=== PATIENT | male | born 1940 | race Caucasian/White ===

== ENCOUNTER 2016-12-14 04:06 | Inpatient (IN) | payer MEDICARE, BC ==
[~2016-12-14] VITALS: Ht 180.3 cm; Wt 108.0 kg
[~2016-12-14 04:06] MED LIST: BACTRIM DS1 TAB PO; JALYN PO; LOPRESSOR50 M1 PO; NITROSTAT0.3 MG PO; NITROSTAT0.4 MG; NORVASC10 M1 PO; TEKTURNA300 MG PO; ZOLOFT50 MG PO
--- NOTE | 2016-12-14 04:06 | NUR ---
PT. IMMEDIATELY TO TREATMENT ROOM VIA DCEMS ON ARRIVAL TO ED.
[2016-12-14] MEDS ORDERED: DIOVAN320 MG PO (04:30)
[2016-12-14] MEDS ORDERED: COREG6.25 MG PO (04:31)
[2016-12-14 04:32] LABS: HEMATOCRIT 42.5 % (39.0-50.0); HEMOGLOBIN 14.5 g/dl (14.0-18.0); IMMATURE GRANULOCYTES 0.2 % (0.0-1.0); MEAN CELL VOLUME 91.8 fL CALC (80.0-100.0); MEAN CORPUSCULAR HGB 31.3 pG CALC (26.0-32.0); MEAN CORPUSCULAR HGB CONC 34.1 g/L CALC (32.0-36.0); NEUT# 3.05 thou/uL (1.82-7.42); RED BLOOD COUNT 4.63 mill/uL (4.70-6.10); RED CELL DISTRI WIDTH 14.3 % (11.5-15.5)
[2016-12-14] MEDS ORDERED: SERTRALINE50 MG PO (04:32)
[2016-12-14 04:38] LABS: ALKALINE PHOSPHATASE 72 u/l (38-126); AMYLASE 73 u/l (30-110); ANION GAP 14 (6-22 (CALC)); BILIRUBIN, TOTAL 0.8 mg/dL (0.0-1.4); BUN 16 mg/dL (8-23); BUN/CREATININE RATIO 23 (12-20 (CALC)); CALCIUM 9.1 mg/dL (8.4-10.2); CARBON DIOXIDE 29 mmol/l (22-30); CHLORIDE 103 mmol/l (95-108); CREATININE 0.7 mg/dL (0.7-1.3); GFR > 60 ML/MIN (>=60 (CALC)); GFR FOR AFR.AMER. > 60 ML/MIN (>=60 (CALC)); GLUCOSE 107 mg/dL (82-115); LIPASE 53 u/l (23-300); SGOT/AST 27 u/l (19-48); SGPT/ALT 29 u/l (11-66); SODIUM 142 mmol/l (137-146); TOTAL PROTEIN 6.9 g/dL (6.3-8.2)
[2016-12-14 04:49] LABS: ACT PARTIAL THROMBO TIME 27.1 SECONDS (20.0-32.5); PROTHROMBIN TIME 10.7 SECONDS (9.0-12.5)
[2016-12-14 04:50] LABS: MYOGLOBIN 68 ng/mL (0 - 121)
--- NOTE | 2016-12-14 04:51 | NUR ---
NITROGLUYCERIN 1 INCH WAS DOCUMENTED UNDER THE TREATMENT SECTION THE COW FAILED COMPLETELY.
--- NOTE | 2016-12-14 05:28 | NUR ---
PATIENT DENIES ANY CP AT THIS TIME.
[2016-12-14 05:34] LABS: URINE BILIRUBIN - DIPSTICK NEGATIVE (NEGATIVE); URINE BLOOD DIPSTICK TRACE-INTACT (NEGATIVE); URINE CLARITY SLIGHT CLOUDY; URINE COLOR YELLOW; URINE GLUCOSE - DIPSTICK NEGATIVE (NEGATIVE); URINE KETONE NEGATIVE (NEGATIVE); URINE NITRITE - DIPSTICK NEGATIVE (Negative); URINE PROTEIN - DIPSTICK NEGATIVE (NEG-TRACE); URINE SPECIFIC GRAVITY 1.015; URINE UROBILINOGEN - DIPSTICK 0.2 E.U./dL (0.2)
[2016-12-14 05:36] LABS: URINE LEUK ESTERASE MODERATE (NEGATIVE)
[2016-12-14 05:40] LABS: URINE BACTERIA MANY hpf; URINE SQUAMOUS EPITHELIAL CELL FEW EPI/hpf (0-FEW)
--- NOTE | 2016-12-14 05:55 | NUR ---
EXPLAINED TO APTIENT AND THAT DR. FERNANDO FEELS PATIENT SHOULD BE ADMITTED. SEEMED QUITE SURPRISED AND I ADVISED HER I WOULD ASK THE ER PROVIDER TO SPEAK WITH HER AND THE PATIENT.
--- NOTE | 2016-12-14 06:40 | NUR ---
OFFERED PATIENT FOOD OR DRINK UNTIL THE TRAYS ARRIVE, BUT HE DECLINED. HAS NO COMPALINTS OF CHEST PAIN AT THIS TIME. CM IS NSR WITH 1ST DEGREE AV BLOCK.
--- NOTE | 2016-12-14 06:55 | NUR ---
REPORT GIVEN TO MED/SURG.
--- NOTE | 2016-12-14 07:00 | NUR ---
ASSUMED CARE OF PT. PT IN HIGH BRITT'S POSITION, C/O LEFT SIDED CHEST PRESSURE 5 OUT OF 10 ON PAIN SCALE. BP 189/107 PULSE 76. MD AWARE. REPEAT TROP AND EKG OBTAINED AT THIS TIME.
--- NOTE | 2016-12-14 07:35 | NUR ---
MEDICATED WITH ZOFRAN 4MG IV AND MORPHINE 2MG IV PER VERBAL ORDER DR HERNÁNDEZ.
--- NOTE | 2016-12-14 07:45 | NUR ---
REPEAT BP 140/80 PULSE 62
[2016-12-14 08:20] VITALS: BP 162/86
--- NOTE | 2016-12-14 08:30 | NUR ---
FROM ER VIA STRETCHER ACCOMPANIED BY AND LATRICE MARROQUIN. PT AMBULATED TO BED WITH STEADY GAIT. RESPS EVEN AND UNLABORED ON ROOM AIR, TELE MONITOR IN PLACE. DENIES PAIN OR DISCOMFORT. ORIENTED TO ROOM AND CALL SYSTEM. SAFETY PRECAUTIONS REINFORCED. BED IN LOWEST POSITION WITH WHEELS LOCKED. CALL LIGHT WITHIN REACH. ENCOURAGED PT AND VISITOR TO CALL FOR ANY NEEDS.
--- NOTE | 2016-12-14 08:46 | NUR ---
PT TO MED SURG VIA STRETCHER IN STABLE CONDITION.
--- NOTE | 2016-12-14 11:25 | NUR ---
RESTING IN HIGH FOWLERS. AT BEDSIDE. RESPS EVEN AND UNLABORED ON ROOM AIR, TELE MONITOR IN PLACE. C/O 9/10 CHEST PAIN/PRESSURE. PHONE CALL TO DR CAMPOS. NEW ORDERS RECEIVED. WILL CONTINUE TO MONITOR.
[2016-12-14 11:29] VITALS: BP 157/104
--- NOTE | 2016-12-14 11:50 | NUR ---
MEDICATED WITH MORPHINE 2MG IVP FOR C/O 9/10 CHEST PAIN/PRESSURE. O2 AT 2L VIA NC. AT BEDSIDE. CALL LIGHT WITHIN REACH.
--- NOTE | 2016-12-14 12:15 | NUR ---
REPORTS CHEST PAIN/PRESSURE RELIEVED AFTER MORPHINE IVP. AMBULATED TO BATHROOM WITH STEADY GAIT ACCOMPANIED BY CLAYTON RIVERA. AT BEDSIDE. WILL CONTINUE TO MONITOR.
--- NOTE | 2016-12-14 13:00 | NUR ---
SMALL AMT LIQUID EMESIS. ANXIOUS, REQUESTING PT TO BE TRAN[facility] DR CAMPOS TO ROOM TO SEE PT AND .
[2016-12-14 13:33] VITALS: BP 157/104
--- NOTE | 2016-12-14 15:50 | NUR ---
Discharge instructions given. Patient verbalizes understanding of same. Discharged in fair condition via Medical Transport to *Other with *Other. All belongings sent with pt.TO [facility]
--- NOTE | 2016-12-14 16:13 | NUR ---
NURSE TO NURSE REPORT CALLED TO ZULEYMA MARROQUIN AT [facility].
--- NOTE | 2016-12-16 08:09 | NUR ---
PHARMACY MEDICATION FOLLOW-UP Patient was seen in ED on 12/14/16 Cultures were reviewed from: Urine Patient was discharged with Rx for:TRN TO [facility] C&S report came back with [employer] PL[employer]: C&S report called to physician Physician that was contacted: Contact #: Recommended: Per Physician; Called the patient to Comment: FAXED TO [facility]
== END 2016-12-14 15:50 | disposition short-term general hospital (02) | DRG 281 ==
LOC: ED 04:06 → ED-I 04:15 → ED 04:15 → ED-I 05:49 → ED 05:53 → MS2 05:54
PROVIDERS: Emergency Medicine; ADMIT Internal Medicine; ATTEND Internal Medicine
DX: I21.4 Non-ST elevation (NSTEMI) myocardial infarction (principal); I47.2 Ventricular tachycardia; I25.110 Atherosclerotic heart disease of native coronary artery with unstable angina pectoris; I10 Essential (primary) hypertension; F32.9 Major depressive disorder, single episode, unspecified; C61 Malignant neoplasm of prostate; I25.2 Old myocardial infarction
CPT/HCPCS: J1650

== ENCOUNTER 2018-01-13 21:42 | Emergency (ER) | payer MEDICARE ==
[~2018-01-13] VITALS: Ht 177.8 cm; Wt 106.8 kg
[~2018-01-13 21:42] MED LIST changes: +COREG6.25 MG PO; +DIOVAN320 MG PO; +SERTRALINE50 MG PO
[2018-01-13 22:18] LABS: HEMATOCRIT 39.3 % (39.0-50.0); HEMOGLOBIN 12.8 g/dl (14.0-18.0); IMMATURE GRANULOCYTES 0.4 % (0.0-1.0); MEAN CELL VOLUME 90.1 fL CALC (80.0-100.0); MEAN CORPUSCULAR HGB 29.4 pG CALC (26.0-32.0); MEAN CORPUSCULAR HGB CONC 32.6 g/L CALC (32.0-36.0); NEUT# 3.46 thou/uL (1.82-7.42); RED BLOOD COUNT 4.36 mill/uL (4.70-6.10); RED CELL DISTRI WIDTH 14.6 % (11.5-15.5)
[2018-01-13 22:35] LABS: PROTHROMBIN TIME 11.4 SECONDS (9.0-12.5)
[2018-01-13 22:36] LABS: ALBUMIN 3.7 g/dL (3.2-5.0); ALKALINE PHOSPHATASE 72 u/l (38-126); AMYLASE 70 u/l (30-110); ANION GAP 14 (6-22 (CALC)); BILIRUBIN, TOTAL 0.5 mg/dL (0.0-1.4); BUN 20 mg/dL (8-23); BUN/CREATININE RATIO 27 (12-20 (CALC)); CARBON DIOXIDE 28 mmol/l (22-30); CHLORIDE 105 mmol/l (95-108); CREATININE 0.7 mg/dL (0.7-1.3); GFR > 60 ML/MIN (>=60 (CALC)); GFR FOR AFR.AMER. > 60 ML/MIN (>=60 (CALC)); LIPASE 33 u/l (23-300); POTASSIUM 3.9 mmol/l (3.5-5.1); SGOT/AST 42 u/l (19-48); SGPT/ALT 36 u/l (11-66); SODIUM 143 mmol/l (137-146); TOTAL PROTEIN 6.4 g/dL (6.3-8.2)
[2018-01-13 22:44] LABS: MYOGLOBIN 63 ng/mL (0 - 121)
[2018-01-14 00:13] LABS: URINE BILIRUBIN - DIPSTICK NEGATIVE (NEGATIVE); URINE BLOOD DIPSTICK NEGATIVE (NEGATIVE); URINE CLARITY SL CLOUDY; URINE COLOR YELLOW; URINE GLUCOSE - DIPSTICK NEGATIVE (NEGATIVE); URINE KETONE NEGATIVE (NEGATIVE); URINE LEUK ESTERASE MODERATE (NEGATIVE); URINE NITRITE - DIPSTICK NEGATIVE (Negative); URINE PH 6.5 (4.5-8.0); URINE PROTEIN - DIPSTICK NEGATIVE (NEG-TRACE); URINE UROBILINOGEN - DIPSTICK 0.2 E.U./dL (0.2)
[2018-01-14] MEDS ORDERED: METOPROL TAR25 MG PO (00:16)
[2018-01-14] MEDS ORDERED: ZESTRIL40 MG PO (00:17)
[2018-01-14] MEDS ORDERED: PLAVIX75 MG PO (00:17)
[2018-01-14] MEDS ORDERED: ADULT ASPIRIN E81 MG PO (00:19)
[2018-01-14 00:20] LABS: URINE BACTERIA MODERATE hpf; URINE RBC 0-2 RBC/hpf (0-5); URINE WBC 20-50 WBC/hpf (0-5)
[2018-01-14] MEDS ORDERED: FINASTERIDE5 MG PO (00:20)
[2018-01-14] MEDS ORDERED: ATORVASTATIN CA40 MG PO (00:21)
[2018-01-14] MEDS ORDERED: AMLODIPINE5 MG PO (00:22)
[2018-01-14] MEDS ORDERED: SERTRALINE HCL50 MG PO (00:23)
[2018-01-14] MEDS ORDERED: CETIRIZINE10 MG PO (00:23)
[2018-01-14 01:25] VITALS: BP 189/98
== END 2018-01-14 01:25 | disposition short-term general hospital (02) ==
LOC: ED 21:42
PROVIDERS: Emergency Medicine
DX: K62.5 Hemorrhage of anus and rectum (principal); I10 Essential (primary) hypertension; N39.0 Urinary tract infection, site not specified; B96.20 Unspecified Escherichia coli [E. coli] as the cause of diseases classified elsewhere; I25.2 Old myocardial infarction; Z95.1 Presence of aortocoronary bypass graft; Z95.5 Presence of coronary angioplasty implant and graft; Z79.02 Long term (current) use of antithrombotics/antiplatelets; Z79.82 Long term (current) use of aspirin
CPT/HCPCS: S0164

== ENCOUNTER 2018-09-11 13:41 | Emergency (ER) | payer MEDICARE ==
[~2018-09-11] VITALS: Ht 152.4 cm; Wt 110.0 kg
[~2018-09-11 13:41] MED LIST changes: +ADULT ASPIRIN E81 MG PO; +AMLODIPINE5 MG PO; +ATORVASTATIN CA40 MG PO; +CETIRIZINE10 MG PO; +FINASTERIDE5 MG PO; +METOPROL TAR25 MG PO; +PLAVIX75 MG PO; +SERTRALINE HCL50 MG PO; +ZESTRIL40 MG PO
[2018-09-11] MEDS ORDERED: FAMOTIDINE20 M1 PO (13:52)
[2018-09-11] MEDS ORDERED: SERTRALINE50 MG PO (13:52)
[2018-09-11] MEDS ORDERED: TAMSULOSIN HCL0.4 MG PO (13:53)
[2018-09-11] MEDS ORDERED: CARVEDILOL25 MG PO (13:54)
[2018-09-11] MEDS ORDERED: ZESTRIL40 MG PO (13:55)
[2018-09-11] MEDS ORDERED: B-121000 MC5 PO (13:57)
[2018-09-11] MEDS ORDERED: VITAMIN D3400 UNI2 PO (13:58)
[2018-09-11 14:58] LABS: HEMATOCRIT 44.3 % (39.0-50.0); HEMOGLOBIN 14.9 g/dl (14.0-18.0); IMMATURE GRANULOCYTES 0.3 % (0.0-5.0); MEAN CELL VOLUME 83.7 fL CALC (80.0-100.0); MEAN CORPUSCULAR HGB 28.2 pG CALC (26.0-32.0); MEAN CORPUSCULAR HGB CONC 33.6 g/L CALC (32.0-36.0); NEUT# 4.5 thou/uL (1.82-7.42); RED BLOOD COUNT 5.29 mill/uL (4.70-6.10); RED CELL DISTRI WIDTH 14.7 % (11.5-15.5)
[2018-09-11 15:01] LABS: URINE BILIRUBIN - DIPSTICK NEGATIVE (NEGATIVE); URINE BLOOD DIPSTICK SMALL (NEGATIVE); URINE COLOR YELLOW; URINE GLUCOSE - DIPSTICK NEGATIVE (NEGATIVE); URINE KETONE NEGATIVE (NEGATIVE); URINE NITRITE - DIPSTICK NEGATIVE (Negative); URINE PROTEIN - DIPSTICK NEGATIVE (NEG-TRACE); URINE SPECIFIC GRAVITY 1.025; URINE UROBILINOGEN - DIPSTICK 0.2 E.U./dL (0.2)
[2018-09-11 15:06] LABS: URINE LEUK ESTERASE MODERATE (NEGATIVE)
[2018-09-11 15:12] LABS: URINE BACTERIA MANY hpf
[2018-09-11 15:24] LABS: ALBUMIN 3.5 g/dL (3.2-5.0); ALKALINE PHOSPHATASE 79 u/l (38-126); ANION GAP 11 (6-22 (CALC)); BILIRUBIN, TOTAL 0.7 mg/dL (0.0-1.4); BUN 19 mg/dL (8-23); BUN/CREATININE RATIO 25 (12-20 (CALC)); CARBON DIOXIDE 30 mmol/l (22-30); CHLORIDE 104 mmol/l (95-108); CREATININE 0.8 mg/dL (0.7-1.3); GFR > 60 ML/MIN (>=60 (CALC)); GFR FOR AFR.AMER. > 60 ML/MIN (>=60 (CALC)); POTASSIUM 3.6 mmol/l (3.5-5.1); SGOT/AST 32 u/l (19-48); SODIUM 142 mmol/l (137-146)
[2018-09-11] MEDS ORDERED: MACRODANTIN100 MG PO (16:35)
[2018-09-11] MEDS ORDERED: HYDROCHLOROT25 MG PO (16:35)
[2018-09-11 18:46] VITALS: BP 181/86
== END 2018-09-11 19:04 | disposition home or self-care (01) ==
LOC: ED 13:41
PROVIDERS: Family Medicine
DX: I10 Essential (primary) hypertension (principal); N39.0 Urinary tract infection, site not specified; I25.2 Old myocardial infarction; B96.20 Unspecified Escherichia coli [E. coli] as the cause of diseases classified elsewhere; Z95.1 Presence of aortocoronary bypass graft; Z95.5 Presence of coronary angioplasty implant and graft

== ENCOUNTER → 2018-12-03 | Outpatient (REF) | payer MEDICARE ==
[~2018-12-03] MED LIST changes: +B-12 COMPL1000 MCG/M IM; +BUSPIRONE7.5 MG PO; +CARVEDILOL25 MG PO; +FAMOTIDINE20 M1 PO; +HYDROCHLOROT25 MG PO; +MACRODANTIN100 MG PO; +ROCEPHIN 1 GM1 GM IV; +TAMSULOSIN HCL0.4 MG PO; +VITAMIN D3400 UNI2 PO; +XARELTO20 MG PO
[2018-12-03 14:31] LABS: ANION GAP 13 (6-22 (CALC)); BUN 24 mg/dL (8-23); BUN/CREATININE RATIO 32 (12-20 (CALC)); CARBON DIOXIDE 29 mmol/l (22-30); CHLORIDE 102 mmol/l (95-108); CREATININE 0.8 mg/dL (0.7-1.3); GFR > 60 ML/MIN (>=60 (CALC)); GFR FOR AFR.AMER. > 60 ML/MIN (>=60 (CALC)); POTASSIUM 3.9 mmol/l (3.5-5.1); SODIUM 140 mmol/l (137-146)
== END | disposition home or self-care (01) ==
LOC: LAB 10:55
PROVIDERS: ATTEND Internal Medicine
DX: I10 Essential (primary) hypertension (principal); R53.83 Other fatigue; E11.65 Type 2 diabetes mellitus with hyperglycemia

== ENCOUNTER → 2018-12-10 | Outpatient (REF) | payer MEDICARE ==
[2018-12-10 12:13] LABS: HEMATOCRIT 42.8 % (39.0-50.0); IMMATURE GRANULOCYTES 0.3 % (0.0-5.0); MEAN CORPUSCULAR HGB 29.7 pG CALC (26.0-32.0); MEAN CORPUSCULAR HGB CONC 32.7 g/L CALC (32.0-36.0); NEUT# 4.08 thou/uL (1.82-7.42); RED BLOOD COUNT 4.71 mill/uL (4.70-6.10); RED CELL DISTRI WIDTH 13.2 % (11.5-15.5)
[2018-12-10 12:15] LABS: MEAN CELL VOLUME 90.9 fL CALC (80.0-100.0)
== END | disposition home or self-care (01) ==
LOC: LAB 11:45
PROVIDERS: ATTEND Internal Medicine
DX: I10 Essential (primary) hypertension (principal); I82.409 Acute embolism and thrombosis of unspecified deep veins of unspecified lower extremity; D64.9 Anemia, unspecified

== ENCOUNTER → 2018-12-11 | Outpatient (REF) | payer MEDICARE | END | disposition home or self-care (01) | LOC: LABSPEC 11:42 | PROVIDERS: ATTEND Internal Medicine | DX: I10 Essential (primary) hypertension (principal); I82.409 Acute embolism and thrombosis of unspecified deep veins of unspecified lower extremity; D64.9 Anemia, unspecified ==

== ENCOUNTER → 2018-12-13 | Outpatient (REF) | payer MEDICARE | END | disposition home or self-care (01) | LOC: CT 12-10 13:00 | PROVIDERS: ATTEND Nurse Practitioner Family | DX: I63.9 Cerebral infarction, unspecified (principal) ==

== ENCOUNTER → 2018-12-17 | Outpatient (REF) | payer MEDICARE ==
[2018-12-17 12:26] LABS: HEMATOCRIT 44.4 % (39.0-50.0); HEMOGLOBIN 14.7 g/dl (14.0-18.0); IMMATURE GRANULOCYTES 0.6 % (0.0-5.0); MEAN CELL VOLUME 90.6 fL CALC (80.0-100.0); MEAN CORPUSCULAR HGB CONC 33.1 g/L CALC (32.0-36.0); NEUT# 4.46 thou/uL (1.82-7.42); RED BLOOD COUNT 4.9 mill/uL (4.70-6.10)
== END | disposition home or self-care (01) ==
LOC: LAB 12:12
PROVIDERS: ATTEND Internal Medicine
DX: I10 Essential (primary) hypertension (principal); I82.409 Acute embolism and thrombosis of unspecified deep veins of unspecified lower extremity; D64.9 Anemia, unspecified

== ENCOUNTER 2018-12-24 10:41 | Observation (INO) | payer MEDICARE ==
[~2018-12-24] VITALS: Ht 170.2 cm; Wt 113.8 kg
[~2018-12-24 10:41] MED LIST changes: -BUSPIRONE7.5 MG PO; -ROCEPHIN 1 GM1 GM IV
[2018-12-24 11:30] VITALS: BP 172/110
--- NOTE | 2018-12-24 11:30 | NUR ---
pt to room via wc accompanied by staff and ; pt ambulatory to bed with stand by assist; pt a/o x4; pt had I&D to right dorsal leg; drsg with moderate amount of bloody drainage noted, drsg reinforced per MD orders; admission assessment completed at this time; oriented to room and call system; will continue to monitor.
--- NOTE | 2018-12-24 14:30 | NUR ---
pt getting out of bed without assistance; pt confused to place and situation; reorienation unsuccessful; pt assisted to brp and back to bed; bed alarm placed at this time;
[2018-12-24] MEDS ORDERED: BUSPIRONE7.5 MG PO (14:39)
--- NOTE | 2018-12-24 15:04 | NUR ---
pt attempting to get out of bed; pt continues to be confused; pt requests to call ; will get telephone in pt's room to place call; bed alarm in placed for safety; call ricardo within reach; will continue to monitor.
[2018-12-24 16:00] VITALS: BP 134/80
[2018-12-24 19:40] VITALS: BP 107/60
--- NOTE | 2018-12-24 21:50 | NUR ---
PT RESTING IN BED. ALERT AND ORIENTED. RESPIRATIONS EVEN AND UNLABORED, LUNG SOUNDS CLEAR. # 22 LW INFUSING NS @ 20ML/HR, APPEARS HEALTHY. PT DRESSING TO RIGHT LEG REMOVED AND NEW WET TO DRY DRESSING APPLIED, PER PHYSICIAN ORDERS. SAFETY PRECAUTIONS IN PLACE
--- NOTE | 2018-12-25 | NUR ---
PT RESTING IN BED WITH EYES CLOSED. NO SIGNS OR SYMPTOMS OF DISTRESS. SAFETY PRECAUTIONS IN PLACE. WILL CONTINUE TO MONITOR.
[2018-12-25 04:15] VITALS: BP 118/69
--- NOTE | 2018-12-25 05:22 | NUR ---
PT RESTING IN BED WITH EYES CLOSED. RESPIRATIONS EVEN AND UNLABORED. NO SIGNS OR SYMPTOMS OF DISTRESS WILL CONTINUE TO MONITOR.
--- NOTE | 2018-12-25 05:40 | NUR ---
REPORT RECEIVED FROM SHAINA CAMP. PT RESTING IN BED. RESPIRATIONS EVEN AND UNLABORED. PT DENIES ANY NEEDS AT THIS TIME. SAFETY PRECAUTIONS IN PLACE. WILL CONTINUE TO MONITOR.
[2018-12-25 05:54] LABS: HEMATOCRIT 37.1 % (39.0-50.0); HEMOGLOBIN 12.1 g/dl (14.0-18.0); IMMATURE GRANULOCYTES 0.4 % (0.0-5.0); MEAN CELL VOLUME 89.8 fL CALC (80.0-100.0); MEAN CORPUSCULAR HGB 29.3 pG CALC (26.0-32.0); MEAN CORPUSCULAR HGB CONC 32.6 g/L CALC (32.0-36.0); NEUT# 3.14 thou/uL (1.82-7.42); RED BLOOD COUNT 4.13 mill/uL (4.70-6.10)
[2018-12-25 06:36] LABS: ALKALINE PHOSPHATASE 68 u/l (38-126); ANION GAP 9 (6-22 (CALC)); BILIRUBIN, TOTAL 0.7 mg/dL (0.0-1.4); BUN 18 mg/dL (8-23); BUN/CREATININE RATIO 25 (12-20 (CALC)); CARBON DIOXIDE 28 mmol/l (22-30); CHLORIDE 104 mmol/l (95-108); CREATININE 0.7 mg/dL (0.7-1.3); GFR > 60 ML/MIN (>=60 (CALC)); GFR FOR AFR.AMER. > 60 ML/MIN (>=60 (CALC)); MAGNESIUM 2.1 mg/dL (1.6-2.3); POTASSIUM 3.4 mmol/l (3.5-5.1); SGOT/AST 16 u/l (19-48); SODIUM 138 mmol/l (137-146); TOTAL PROTEIN 4.9 g/dL (6.3-8.2)
--- NOTE | 2018-12-25 06:55 | NUR ---
REPORT RECEIVED FROM NNEKARN;PT RESTING IN SEMI FOWLERS POSITION;INTRODUCED SELF TO PT AND POC DISCUSSED;RESPIRATIONS EVEN AND UNLABORED ON RA;PT DENIES ANY CURRENT PAIN OR NEEDS;IV FLUIDS INFUSING WELL TO LEFT WRIST;PT ENCOURAGED TO CALL FOR ASSISTANCE IF NEEDED;ENCOURAGED TO CALL FOR ASSISTANCE IF NEEDED;FALL PRECAUTIONS IN PLACE WITH BED ALARM ON FOR SAFETY;CALL LIGHT IN REACH;WILL CONTINUE TO MONITOR
[2018-12-25 06:57] LABS: ALBUMIN 2.7 g/dL (3.2-5.0)
[2018-12-25 08:25] VITALS: BP 134/73
--- NOTE | 2018-12-25 08:25 | NUR ---
PT RESTING IN SEMI FOWLERS POSITION WITH SPOUSE AT BEDSIDE;A&OX3 AT THIS TIME;VS OBTAINED AND ASSESSMENT COMPLETED;PT HAD AN I&D TO RLE ON 12/24/18;RESPIRATIONS EVEN AND UNLABORED ON RA;ABDOMEN DISTENDED/SOFT ON PALPATION AND ACTIVE IN ALL 4 QUADRANTS;STRONG PEDAL PULSES;#22G TO LEFT WRIST INFUSING NS @ KVO PER ORDER,SITE APPEARS HEALTHY;DRESSING REMOVED TO RLE AT THIS TIME, WOUND CLEANSED WITH NORMAL SALINE AND WET/DRY DRESSING APPLIED PER ORDER;WOUND SECURED WITH TELFA,KERLEX, & PAPER TAPE;PT RE-POSITIONED INTO BED FOR COMFORT;PT DENIES ANY CURRENT PAIN OR DISCOMFORTS,PAIN SCALE AND REPORTING EDUCATED;ENCOURAGED PT TO CALL FOR ASSISTANCE IF NEEDED;BED ALARM ON FOR PT SAFETY;CALL LIGHT IN REACH;WILL CONTINUE TO MONITOR
--- NOTE | 2018-12-25 09:27 | NUR ---
AT BEDSIDE AT BEDSIDE DISCUSSING POC INCLUDING D/C HOME.
--- NOTE | 2018-12-25 11:40 | NUR ---
AT BEDSIDE DISCUSSING POC.
--- NOTE | 2018-12-25 12:15 | NUR ---
PT RESTING IN SEMI FOWLERS POSITION;RESPIRATIONS REMAIN EVEN AND UNLABORED ON RA;PT DENIES ANY CURRENT PAIN OR NEEDS;REINFORCED ELEVATION OF RLE ON A PILLOW;IV SITE REMAINS PATENT TO LEFT WRIST;ASSESSMENT REMAINS UNCHANGED AT THIS TIME;SAFETY PRECAUTIONS IN PLACE WITH BED ALARM ON FOR SAFTEY;CALL LIGHT IN REACH;WILL CONTINUE TO MONITOR
--- NOTE | 2018-12-25 17:00 | NUR ---
PT CONFUSED TO TIME AND PLACE,RE-ORIENTED NEEDED. AT BEDSIDE. INFORMED CONSENT FOR INSERTION OF PICC LINE OBTAINED AT THIS TIME FOM SPOUSE.CONSENT PLACED IN CHART.WILL CONTINUE TO MONITOR
[2018-12-25 17:34] VITALS: BP 174/80
--- NOTE | 2018-12-25 18:00 | NUR ---
PT RESTING IN SEMI FOWLERS POSITION, ALERT TO TIME AND PLACE AT THIS TIME;PT DENIES ANY ADDITIONAL NEEDS AND IS ENCOURAGED TO CALL FOR ASSISTANCE IF NEEDED;BED ALARM ON FOR PT SAFETY;CALL LIGHT IN REACH;WILL CONTINUE TO MONITOR
[2018-12-25 18:06] VITALS: BP 163/92
--- NOTE | 2018-12-25 19:00 | NUR ---
REPORT RECEIVED FROM SHAINA CAMP. PT RESTING IN BED DENIES ANY PAIN OR DISCOMFORT. SAFETY PRECAUTIONS IN PLACE. WILL CONTINUE TO MONITOR.
[2018-12-25 19:15] VITALS: BP 173/92
[2018-12-25 20:35] VITALS: BP 145/85
[2018-12-26 00:15] VITALS: BP 137/83
--- NOTE | 2018-12-26 01:01 | NUR ---
PT REASTING IN BED WITH EYES CLOSED EASILY AROUSED. PT DRESSING WET TO DRY DRESSING CHANGED, PT TOLERATED WELL. WILL CONTINUE TO MONITOR.
[2018-12-26 04:00] VITALS: BP 170/88
--- NOTE | 2018-12-26 05:30 | NUR ---
PT COMPLAINS OF CHEST PAIN LASTING 1 TO 2 MINUTES, MANAGER PACKAGE MD NOTIFIED. EKG OBTAINED.
--- NOTE | 2018-12-26 06:10 | NUR ---
PT AGITATED STATING " I'M LEAVING AND YOU CAN'T STOP ME." ASKED PT WHY HE WANTED TO LEAVE PT STATES "I'M DONE I DON'T WANT TO BE HERE ANY MORE". ASKED PT IF HE WOULD WAIT WHILE I GET THE PAPER WORK READY, PT AGREED TO WAIT. NOTIFIED WRAP YARN SORTER. CALLED PT . ON SPOKE TO PT, HE AGREED TO WAIT TO LEAVE. SAFETY PRECAUTIONS IN PLACE. WILL CONTINUE TO MONITOR.
--- NOTE | 2018-12-26 07:30 | NUR ---
PT REPORT RECIEVED FROM CARA EARLY. PT LYING IN BED TALKING W/ . NO S/S OF DISTRESS. CALL LIGHT IN REACH. WILL CONTINUE TO MONITOR.
[2018-12-26 08:24] VITALS: BP 177/90
--- NOTE | 2018-12-26 08:28 | NUR ---
PT ALERT, W/ CONFUSION. RESP EVEN AND UNLABORED. LUNG SOUNDS CLEAR. TELE IN PLACE. BOWEL SOUNDS ACTIVE X4. STRONG RADIAL, WEAK PEDAL PULSES. PICC ZAHRA SL. FLUSHED AND PATENT. SITE APPEARS HEALTHY. PT HAS A #22 LFA SL. FLUSHED AND PATENT. SITE APPEARS HEALTHY. DRESSING TO RLE, CDI. PT DENIES ANY PAIN OR NEEDS. POC DISCUSSED W/ PT AND SPOUSE. SAFETY PRECAUTIONS IN PLACE. CALL LIGHT IN REACH. BED ALARM ON. WILL CONTINUE TO MONITOR.
--- NOTE | 2018-12-26 08:33 | NUR ---
DESMONDRN CALLED REGARDING PT BEING ANXIOUS AND READY TO GO HOME; AWAITING PICC INSERTION. DESMOND UP TO SEE PT. PT AND SPOUSE STATES UNDERSTANDING. PT LESS AGITATED AT THIS TIME.
--- NOTE | 2018-12-26 09:00 | NUR ---
TO FLOOR FOR PICC PLACEMENT. DISCUSSED RISK AND BENEFIT /c Pt AND SPOUSE. ANSWERED ALL QUESTIONs /c COMPLETE UNDERSTANDING RETURNED. INSERTED MID-LINE VIA benefits representative. CIRC 38cm AND LINE TRIMMED TO 16cm. INSERTED /c ASSIST OF Sridevi JAMISON LPN. INSERTION SITE COVERED UNDER benefits representative. WELL TOLERATED BY Pt.
[2018-12-26 10:44] VITALS: BP 149/62
[2018-12-26] MEDS ORDERED: ROCEPHIN 1 GM1 GM IV (11:50)
--- NOTE | 2018-12-26 12:40 | NUR ---
DRESSING REMOVED FROM PT RLE. SMALL AMOUNT OF BLOODY DRAINAGE NOTED. SMALL INCISIONAL AREA NOTED WHERE IND WAS PERFORMED. NO ODOR. IDOFORM REMOVED FROM INCISIONAL AREA. CLEANSED W/ SALINE. PACKED W/ IODOFORM. ABD AND KERLIX APPLIED. ELEVATED ON A PILLOW. PT DENIES ANY PAIN OR NEEDS. CALL LIGHT IN REACH. BED ALARM ON. URINAL AT BEDSIDE. WILL CONTINUE TO MONITOR.
[2018-12-26 14:13] VITALS: BP 155/80
--- NOTE | 2018-12-26 15:32 | NUR ---
D/C INSTRUCTIONS DISCUSSED W/ PT AND SPOUSE. BOTH STATE UNDERSTANDING. IV REMOVED. CATHETER INTACT. PT AWAITNG VOLUNTEER FOR TRANSPORT DOWNSTAIRS.
--- NOTE | 2018-12-26 15:40 | NUR ---
Discharge instructions given. Patient verbalizes understanding of same. Discharged in stable condition via Wheelchair to Home with spouse. All belongings sent with pt.
== END 2018-12-26 15:35 | disposition home or self-care (01) ==
LOC: MS2 10:41
PROVIDERS: ADMIT Surgery; ATTEND Internal Medicine Nephrology
PROC: 0H9KXZZ Drainage of Right Lower Leg Skin, External Approach (ICD-10-PCS; principal; 2018-12-24)
PROC: 05HB33Z Insertion of Infusion Device into Right Basilic Vein, Percutaneous Approach (ICD-10-PCS; 2018-12-25)
DX: L02.415 Cutaneous abscess of right lower limb (principal); I10 Essential (primary) hypertension; E11.9 Type 2 diabetes mellitus without complications; I25.10 Atherosclerotic heart disease of native coronary artery without angina pectoris; F32.9 Major depressive disorder, single episode, unspecified; C61 Malignant neoplasm of prostate; K21.9 Gastro-esophageal reflux disease without esophagitis; E78.5 Hyperlipidemia, unspecified; E55.9 Vitamin D deficiency, unspecified; D64.9 Anemia, unspecified; E46 Unspecified protein-calorie malnutrition; B95.61 Methicillin susceptible Staphylococcus aureus infection as the cause of diseases classified elsewhere; Z68.39 Body mass index [BMI] 39.0-39.9, adult; Z79.01 Long term (current) use of anticoagulants; Z95.1 Presence of aortocoronary bypass graft; Z86.718 Personal history of other venous thrombosis and embolism
CPT/HCPCS: J0878